=== PATIENT | female | born 1955 ===

== ENCOUNTER 2021-11-07 20:00 | Outpatient (REF) | payer OTHER, SELFPAY ==
[2021-11-07 21:54] LABS: Bacteria Few HPF (Negative); Epithelial Cells Negative HPF (Negative); Other Cells Negative (Negative); RBC Negative HPF (0-2); WBC >50 HPF (0-5)
[2021-11-07 21:55] LABS: C & S Indicated? C&S Done As Ordered; Casts Negative LPF (Negative); Crystals Negative HPF (Negative); Mucus Negative (Negative)
== END 2021-11-07 20:01 | disposition home or self-care (01) ==
LOC: LBN 20:00
PROVIDERS: Visit Provider Family Medicine
DX: R33.9 Retention of urine, unspecified (principal)
CPT/HCPCS: 87077; 81015; 87086; 87186

== ENCOUNTER 2021-11-25 15:59 | Emergency (ER) | payer OTHER, SELFPAY ==
[2021-11-25 16:09] VITALS: BP 156/76; PULSE 72; RESP 16; TEMP 36.9; O2SAT 100
--- NOTE | 2021-11-25 16:15 | DI.RAD_ITS ---
Exam(s) XR FOOT LT COMPLETE EXAM: XR FOOT LT COMPLETE CLINICAL HISTORY: lateral pain and selling. TECHNIQUE: 2D digital imaging was performed. COMPARISON: No exams were available for comparison FINDINGS: 3 views There is a transverse fracture of the base of the 5th metatarsal with mild widening of the fracture l ine. No other fractures identified. No diastasis of the Lisfranc joint. Accessory ossicles are not ed at the opposite-medial aspect of the foot just proximal to the navicular tuberosity. Also noted i s hallux valgus and some chronic-type degenerative changes at the great toe metatarsophalangeal joint . IMPRESSION: Transverse fracture at the base of the 5th metatarsal. Some widening of the fracture line noted. DATA REPOSITORY: RADIATION DOSE DELIVERED:
--- NOTE | 2021-11-25 16:21 | W.ED.GENAD ---
Discharge Plan Disposition Patient Disposition: HOME Condition: Stable Discharge Details Clinical Impression: Fracture of fifth metatarsal bone of left foot Primary Care Provider: Barbara,Local ED Provider: Gerard Brito Home Meds and New Rx's Prescriptions: Continued calcium carbonate [Calcium 600] 600 mg calcium (1,500 mg) Tablet 1,200 mg PO DAILY doxycycline monohydrate 40 mg Capsule,Ir - Delay Rel,Biphase 40 mg PO DAILY Discharge Instructions Instructions: Foot Fracture in Adults (ED) Additional Instructions: You have a fracture of the fifth metatarsal of your foot. Elevate above the level of the heart to reduce pain and swelling. You may notice that the bruising continues to spread. May remove boot for bathing. You should be nonweightbearing with the use of crutches until seen orthopedics. We have referred you to [facility]. The office #[phone] please call them for appointment time if you have not heard anything by Sunday morning. Tylenol Tylenol 650 to 975 mg every 4-6 hours as needed for pain up to 3 times per day. May also use ibuprofen 600 to 800 mg every 8 hours, best taken with food. Apply ice through the splint to reduce pain and swelling. Return to the emergency department for any acute Medical Decision Making This is a 66-year-old female who rolled her ankle while walking out of her shed. She developed left lateral foot pain with swelling and ecchymosis. She is tender along the lateral metatarsals. Patient given ice, referred for x-ray. This reveals fracture through the base of the fifth metatarsal most likely a pseudo Arellano fracture. Will make nonweightbearing and immobilized in walking boot. We will arrange for follow-up in orthopedics. HPI General Mode of arrival: ambulatory. Date/Time Provider Initiated Documentation: 11/25/21 16:18. Limitations to Documentation: no limitations. Information obtained by: patient. History of Present Illness 66 year old F presents to the emergency department with the chief complaint of Left foot pain after stepping off a step and rolling, described as moderate, Quality is described as dull and constant, and is localized to the left and lower extremity. Patient reports no radiation. Patient started experiencing this hour(s) and it has been constant. No relieving factors improve symptom(s), No exacerbating factors reported . Related Data Home Medications Medication Instructions Recorded Confirmed calcium carbonate 600 mg calcium 1,200 mg PO DAILY 11/25/21 11/25/21 (1,500 mg) tablet (Calcium) doxycycline monohydrate 40 mg 40 mg PO DAILY 11/25/21 11/25/21 capsule,immediate - delay release Allergies Allergy/AdvReac Type Severity Reaction Status Date / Time acetaminophen [From Percocet] Allergy Unverified 11/25/21 16:14 oxycodone [From Percocet] Allergy Unverified 11/25/21 16:14 General Stated Complaint: Orthopedic ALLY: 4 Review of Systems Narrative: Previously well, does not take anticoagulants, no other injury. 4 systems reviewed and otherwise negative PFSH All Active Problems (Updated 11/25/21 @ 17:02 by Gerard Brito MD) Fracture of fifth metatarsal bone of left foot (Acute) Social History Smoking/Tobacco Use Status: Former Tobacco Use Smoking risk assessment performed?: Yes Substance use type: does not use Exam Narrative Exam Narrative: GEN: awake, alert, oriented 3. Pleasant, well groomed, interactive. HEAD: Normocephalic, atraumatic NECK: Full ROM, no PAULO, no menigismus CHEST/RESP: No respiratory distress EXT: Full ROM, the left lateral foot is ecchymotic, edematous with swelling and tender along the lateral portion of. There is no deformity over the ankle mortise. 2+ DP palpated Neuro: Grossly normal neurologic exam, conversant, interactive. Psych: Speech fluent, thoughts congruent, affect normal Course Vital Signs Vital signs: Vital Signs Temperature 36.9 C 11/25/21 16:09 Pulse 72 11/25/21 16:09 Respiratory Rate 16 11/25/21 16:09 Blood Pressure 156/76 H 11/25/21 16:09 Pulse Oximetry 100 11/25/21 16:09 Temperature 36.9 C 11/25/21 16:09 Temperature Source Temporal Artery Scan 11/25/21 16:09 Pulse 72 11/25/21 16:09 Respiratory Rate 16 11/25/21 16:09 Respiratory Effort 11/25/21 16:09 Blood Pressure 156/76 H 11/25/21 16:09 Blood Pressure Position Sitting 11/25/21 16:09 Pulse Oximetry 100 11/25/21 16:09 Oxygen Delivery Method Room Air 11/25/21 16:09 Oxygen Flow Rate 0 11/25/21 16:09 Pain Level 5 11/25/21 16:09
--- NOTE | 2021-11-25 17:17 | DI.VRAD_ITS ---
PROCEDURE INFORMATION: Exam: XR Left Foot Exam date and time: 11/25/2021 4:54 PM Age: 66 years old Clinical indication: Injury or trauma; Other: PT states shetwisted her foot; Sprain or strain; Left; Injury date: 11/25/2021 TECHNIQUE: Imaging protocol: XR Left foot. Views: 3 or more views. COMPARISON: No relevant prior studies available. FINDINGS: Bones/joints: Fracture proximal 5th metatarsal. Degenerative changes of the 1st metatarsal phalangeal joint. Decreased bone mineralization. Soft tissues: Unremarkable. IMPRESSION: Fractured 5th proximal metatarsal. Dictated and Authenticated by: Parris Servin MD. Ordering:KIMBERLYN Gee MD
== END 2021-11-25 17:15 | disposition home or self-care (01) ==
PROVIDERS: Emergency Provider Emergency Medicine
DX: S92.352A Displaced fracture of fifth metatarsal bone, left foot, initial encounter for closed fracture (principal); X50.1XXA Overexertion from prolonged static or awkward postures, initial encounter
CPT/HCPCS: 29515; 99283; 73630

== ENCOUNTER 2021-12-12 10:41 | Outpatient (CLI) | payer OTHER, SELFPAY ==
--- NOTE | 2021-12-12 10:00 | DI.RAD_ITS ---
Exam(s) XR FOOT LT COMPLETE EXAM: XR FOOT LT COMPLETE CLINICAL HISTORY: follow up. TECHNIQUE: 2D digital imaging was performed of the left foot. Three images were obtained. AP, obli que and lateral views were obtained. COMPARISON: CR,XR XR FOOT LT COMPLETE from 11/25/2021 FINDINGS: BONES: There is again seen a fracture through the base of the 5th metatarsal bone. There does appear to be very mild widening of the fracture since the prior examination. No new fracture or dislocatio n is seen. No bony destructive lesion is seen. JOINTS: No dislocation present. Degenerative changes are again seen at the 1st MTP joint. There is a mild hallux valgus deformity. SOFT TISSUE: Normal. IMPRESSION: Fifth metatarsal fracture. DATA REPOSITORY: RADIATION DOSE DELIVERED:
== END 2021-12-12 10:42 | disposition home or self-care (01) ==
LOC: DIORS 10:41
PROVIDERS: PCP Nurse Practitioner Family; Referring Provider Nurse Practitioner Family; Visit Provider Physician Assistant Surgical
DX: S92.352D Displaced fracture of fifth metatarsal bone, left foot, subsequent encounter for fracture with routine healing (principal); M20.12 Hallux valgus (acquired), left foot; X58.XXXD Exposure to other specified factors, subsequent encounter
CPT/HCPCS: 73630

== ENCOUNTER 2022-01-13 10:07 | Outpatient (CLI) | payer OTHER, SELFPAY ==
--- NOTE | 2022-01-13 10:00 | DI.RAD_ITS ---
Exam(s) XR FOOT LT COMPLETE EXAM: XR FOOT LT COMPLETE CLINICAL HISTORY: f/u 5th metatarsal fracture. TECHNIQUE: 2D digital imaging was performed. Three views. COMPARISON: CR XR FOOT LT COMPLETE from 12/12/2021 FINDINGS: There is a moderate hallux valgus. There are moderate degenerative changes of the 1st MTP joint with periarticular spurring and subchondral cyst formation. Defect medial aspect 1st metatarsal head con sistent with bunionectomy. The remaining MTP joints are unremarkable. There is there has been no ch yanet in the alignment of the fracture at the base of the 5th metatarsal. No new fractures. Ossicle adjacent to the navicular. IMPRESSION: Stable appearance of 5th metatarsal fracture. DATA REPOSITORY: RADIATION DOSE DELIVERED:
== END 2022-01-13 10:08 | disposition home or self-care (01) ==
LOC: DIORS 10:08
PROVIDERS: PCP Nurse Practitioner Family; Referring Provider Nurse Practitioner Family; Visit Provider Student in an Organized Health Care Education/Training Program
DX: S92.352D Displaced fracture of fifth metatarsal bone, left foot, subsequent encounter for fracture with routine healing (principal); X58.XXXD Exposure to other specified factors, subsequent encounter
CPT/HCPCS: 73630

== ENCOUNTER 2022-03-02 10:08 | Outpatient (REF) | payer OTHER, SELFPAY | END 2022-03-02 10:09 | disposition home or self-care (01) | LOC: LBN 10:08 | PROVIDERS: PCP Nurse Practitioner Family; Visit Provider Nurse Practitioner Family | DX: R35.89 Other polyuria (principal) | CPT/HCPCS: 87086 ==

== ENCOUNTER 2023-09-13 15:01 | Outpatient (REF) | payer MEDICARE, SELFPAY ==
[2023-09-13 21:27] LABS: Bilirubin Negative (Negative); Blood Negative (Negative); Clarity Clear (Clear); Glucose Negative (Negative); Ketones Trace mg/dL (Negative); Leukocyte Esterase Negative (Negative); Nitrite Negative (Negative); Specific Gravity 1.025 (1.005-1.025); Urobilinogen 0.2 mg/dL (Up to 0.2)
== END 2023-09-13 15:02 | disposition home or self-care (01) ==
LOC: NCHCN 15:01
PROVIDERS: PCP Nurse Practitioner Family; Visit Provider Family Medicine
DX: R35.89 Other polyuria (principal)
CPT/HCPCS: 81003